=== PATIENT | male | born 1960 | race African-American/Black ===

== ENCOUNTER → 2024-02-27 | Outpatient (CLI) | payer OTHER ==
[2024-02-27 13:37] LABS: ALBUMIN 3.5 g/dL (3.4-5.0); BILIRUBIN,DIRECT 0.2 mg/dL (0.00-0.20); BILIRUBIN,TOTAL 0.6 mg/dL (0.1-1.0); TOTAL PROTEIN, SERUM 7.8 g/dL (6.4-8.2)
== END | disposition home or self-care (01) ==
LOC: LABMN 13:07
PROVIDERS: ATTEND Chiropractor
DX: K83.01 Primary sclerosing cholangitis (principal)
CPT/HCPCS: 80076